=== PATIENT | male | born 1935 | race Caucasian/White ===

== ENCOUNTER → 2017-09-17 | Outpatient (CLI) | payer OTHER ==
[~2017-09-17] VITALS: Ht 186.7 cm; Wt 85.0 kg
[~2017-09-17] MED LIST: ADULT ASPIRIN81 MG PO; AMITRIPTYLINE H25 MG PO; ATORVASTATIN CA40 MG PO; CALCIUM 600 +1 EA14 PO; CALCIUM WITH V1 EAC2 PO; COQ-10100 MG PO; COUMADIN5 MG PO; COUMADIN7.5 MG PO; DOXYCYCLINE HY100 MG PO; ELAVIL25 MG PO; ELIQUIS5 MG PO; KRILL OIL 3501 EACH PO; KRILL OIL500 MG PO; OCUVITE TABLET1 EACH PO; RED YEAST RICE600 MG PO; VITAMIN B122500 MCG PO
[2017-09-17 13:14] VITALS: BP 157/79
== END | disposition home or self-care (01) ==
LOC: IVINF 12:56
DX: M81.0 Age-related osteoporosis without current pathological fracture (principal); Z87.19 Personal history of other diseases of the digestive system
CPT/HCPCS: 96365; J3489